=== PATIENT | male | born 1950 | race American Indian/Alaskan Native ===

== ENCOUNTER 2017-04-07 15:05 | Emergency (ER) | payer BC ==
[2017-04-07 18:20] VITALS: BP 121/73
--- NOTE | 2017-04-07 19:45 | Emergency Department Report ---
HPI - General Chief Complaint: Skin Rash Time Seen by Provider: 04/07/17 19:29 - HPI HPI: This is a 66-year-old male presents to ED complaining couple of days ago working with fiberglass been some got on his right arm. Patient states he gets intermittent pain irritation since the incident. Patient states he wants something he can take to help with the itching and rash. He denies fevers/chills/nausea/shortness of breath, abdominal pain, chest pain/ nausea/vomiting or any other problems ED Past Medical Hx - Past Medical History Previous Medical History?: Yes Hx Congestive Heart Failure: No Hx Diabetes: No Hx Deep Vein Thrombosis: Yes (R leg) Hx Asthma: No Hx COPD: No - Surgical History Past Surgical History?: Yes Hx Appendectomy: Yes - Social History Smoking Status: Never Smoker Substance Use Type: None - Medications Home Medications: Home Medications Medication Instructions Recorded Confirmed Last Taken Type Apixaban [Eliquis] 5 mg PO BID #70 tablet 12/02/15 Unknown Rx Triamcinolone 0.1% [Kenalog 0.1% 1 applic TP TID #1 tube 04/07/17 Unknown Rx CREAM] diphenhydrAMINE [Benadryl CAP] 25 mg PO Q8HR PRN #30 capsule 04/07/17 Unknown Rx ED Review of Systems ROS: Stated complaint: RASH ON ARM Other details as noted in HPI Constitutional: denies: chills, fever Eyes: denies: eye pain, eye discharge, vision change ENT: denies: ear pain, throat pain Respiratory: denies: cough, shortness of breath, wheezing Cardiovascular: denies: chest pain, palpitations Endocrine: no symptoms reported Gastrointestinal: denies: abdominal pain, nausea, diarrhea Genitourinary: denies: urgency, dysuria Musculoskeletal: denies: back pain, joint swelling, arthralgia Skin: denies: rash, lesions Neurological: denies: headache, weakness, paresthesias Psychiatric: denies: anxiety, depression Hematological/Lymphatic: denies: easy bleeding, easy bruising Physical Exam - Physical Exam Vital Signs: Vital Signs 04/07/17 04/07/17 15:57 18:19 Temperature 98.2 F Pulse Rate 75 64 Respiratory 16 20 Rate Blood Pressure 121/79 Blood Pressure 121/73 [Left] O2 Sat by Pulse 100 99 Oximetry Physical Exam: GENERAL: Alert and oriented x3, no apparent distress, Normal Gait, atraumatic. HEAD: Head is normocephalic and a-traumatic. NOSE: Nose symetrical, Nontender,Nares appeared normal. MOUTH:Mouth is well hydrated and without lesions. Tonsils nonerythematous or swollen, Uvula midline, Tongue not elevated. Mucous membranes are moist. Posterior pharynx clear, no exudate or lesions. Patent airways. NECK: Supple. Non edematous,. No lymphadenopathy or thyromegaly. LUNGS: Symetrical with respiration, No wheezing, no rales or crackles, CTAB. HEART: S1, S2 present, regular rate and rhythm without murmur, no rubs, no gallops. Non tender to palpation SKIN: Warm and dry, No lesions, No ulceration or induration present. ED Course Vital Signs 04/07/17 04/07/17 15:57 18:19 Temperature 98.2 F Pulse Rate 75 64 Respiratory 16 20 Rate Blood Pressure 121/79 Blood Pressure 121/73 [Left] O2 Sat by Pulse 100 99 Oximetry ED Medical Decision Making - Medical Decision Making This is a 66-year-old presents with intact dermatitis ED course: Discussed patient with a scribe Patient is in no acute distress His vital signs are stable. He understands instructions and will follow-up Critical care attestation.: If time is entered above; I have spent that time in minutes in the direct care of this critically ill patient, excluding procedure time. ED Disposition Clinical Impression: Skin irritation Contact dermatitis Qualifiers: Contact dermatitis type: irritant Contact dermatitis trigger: other trigger Qualified Code(s): L24.89 - Irritant contact dermatitis due to other agents Disposition: DC-01 TO HOME OR SELFCARE Is pt being admited?: No Does the pt Need Aspirin: No Condition: Stable Instructions: Contact Dermatitis (ED) Prescriptions: diphenhydrAMINE [Benadryl CAP] 25 mg PO Q8HR PRN #30 capsule PRN Reason: Allergic Reaction Triamcinolone 0.1% [Kenalog 0.1% CREAM] 1 applic TP TID #1 tube Referrals: PRIMARY MD CAROL ANN [Primary Care Provider] - 3-5 Days ROJELIO MARTINEZ MD [Referring] - 3-5 Days [facility] [Outside] - 3-5 Days [facility] [Outside] - 3-5 Days Forms: Work/School Release Form(ED) Time of Disposition: 19:49
== END 2017-04-07 20:13 | disposition home or self-care (01) ==
LOC: ED 15:05
DX: L24.89 Irritant contact dermatitis due to other agents (principal); I82.401 Acute embolism and thrombosis of unspecified deep veins of right lower extremity
CPT/HCPCS: 99282